=== PATIENT | male | born 1970 | race African-American/Black ===

== ENCOUNTER 2017-11-20 18:51 | Emergency (ER) | payer MEDICAID, OTHER ==
[~2017-11-20] VITALS: Ht 182.9 cm; Wt 94.3 kg
[~2017-11-20 18:51] MED LIST: ARIP30TA3 PO
[2017-11-20 19:05] VITALS: BP 133/72
[2017-11-20] MEDS ORDERED: ONDANSETRON HCL/PF 4 MG/2 ML VIAL IVP ONE (19:30)
[2017-11-20] MEDS ORDERED: HYDROMORPHONE INJ 2 MG/ML DISP.SYRIN IV ONE (19:30)
[2017-11-20] MEDS ORDERED: DEXAMETHASONE SOD PHOSPHATE 10 MG/ML VIAL IV ONE (19:30)
[2017-11-20] MEDS ORDERED: KETOROLAC TROMETHAMINE INJ 30 MG/ML VIAL IV ONE (19:30)
[2017-11-20] MEDS ORDERED: HYDROMORPHONE INJ 2 MG/ML DISP.SYRIN ONE ×2 (19:34→20:27)
[2017-11-20] MEDS ORDERED: KETOROLAC TROMETHAMINE 15 MG/ML VIAL ONE (19:36)
[2017-11-20] MEDS ORDERED: DEXAMETHASONE SOD PHOSPHATE 10 MG/ML VIAL ONE (19:36)
[2017-11-20] MEDS ORDERED: ONDANSETRON HCL/PF 4 MG/2 ML VIAL ONE (19:36)
[2017-11-20] MEDS ORDERED: HYDROMORPHONE 1 MG/1 ML DISP.SYRIN IV ONE (20:30)
== END 2017-11-20 21:16 | disposition home or self-care (01) ==
LOC: ER 19:00
DX: M54.16 Radiculopathy, lumbar region (principal); G89.29 Other chronic pain; F32.9 Major depressive disorder, single episode, unspecified; F41.9 Anxiety disorder, unspecified; F17.200 Nicotine dependence, unspecified, uncomplicated; Z91.030 Bee allergy status
CPT/HCPCS: A4606; J1100; J1170; J1885; J2405; Z7610

== ENCOUNTER 2017-11-26 07:03 | Emergency (ER) | payer MEDICAID, OTHER ==
[~2017-11-26] VITALS: Ht 182.9 cm; Wt 94.3 kg
[2017-11-26 07:03] VITALS: BP 134/66
[2017-11-26] MEDS ORDERED: NAPROXEN 250 MG TABLET ONE (07:45)
[2017-11-26] MEDS ORDERED: NAPROXEN 250 MG TABLET PO ONE (08:00)
== END 2017-11-26 08:10 | disposition home or self-care (01) ==
LOC: ER 07:05
DX: M54.42 Lumbago with sciatica, left side (principal); G89.29 Other chronic pain; F32.9 Major depressive disorder, single episode, unspecified; F41.9 Anxiety disorder, unspecified
CPT/HCPCS: 99283; A4606; Z7610